=== PATIENT | female | born 1955 | race Caucasian/White ===

== ENCOUNTER 2020-05-22 17:39 | Emergency (ER) | payer BC, OTHER, SELFPAY ==
[2020-05-22 17:47] VITALS: BP 150/87; PULSE 87; RESP 16; TEMP 36.9; O2SAT 99
--- NOTE | 2020-05-22 17:55 | ED.GENADULT ---
HPI - General Adult General Chief complaint: Upper Respiratory Infection Stated complaint: NOSE/THROAT/SWELLING/HEADACHE/NO ENERGY Time Seen by Provider: 05/22/20 17:55 Source: patient and RN notes reviewed Mode of arrival: ambulatory Limitations: no limitations History of Present Illness HPI narrative: 65-year-old female presents with complaints of upper respiratory infection, sneezing, some facial congestion, facial pressure, and intermittent headache (not the worst of her life) for the past 20 days. Ana Cristina reports increase symptoms with facial pain and pressure for the past 72 hours. Aleve at noon with little relief. No facial swelling. Denies cough. Nasal congestion, no rhinorrhea. No high fevers, drooling, neck or throat swelling. No voice change. No nausea, vomiting, or abdominal pain. Tolerating liquids well. Denies dyspnea, difficulty swallowing, jaw pain, dental pain, foreign body sensation, and rash. No chest pain or shortness of breath. The patient reports she have not been diagnosed with COVID-19. The patient reports she received her 2nd Pfized COVID-19 vaccine 05/17/2020. The patient reports she is not waiting for the results of a COVID-19 lab test. The patient reports she do not have chills, weakness, or fatigue. The patient reports she do not have any sore throat, loss of taste or smell, and diarrhea. Denies recent traveling. Denies concerns for COVID-19 or exposures been home with limited outdoor exposure except for essential household needs, work, and return home. At this time, patient is not suspected of having COVID-19. Some parts of this dictation were generated by voice recognition software and may contain typographical and/or grammatical inaccuracies. Related Data Home Medications Medication Instructions Recorded Confirmed bupropion HCl PO 05/22/20 Allergies Allergy/AdvReac Type Severity Reaction Status Date / Time No Known Allergies Allergy Unverified 07/04/16 06:30 Review of Systems Review of Systems: Narrative: CONSTITUTIONAL: Denies fever, chills, sweats. Complains of fatigue. EYES: Denies visual changes, redness, discharge. ENT: Complains of congestion, facial congestion and pressure, scratchy throat. Denies rhinorrhea, otalgia, sore throat. CARDIOVASCULAR: Denies chest pain, palpitations, edema. RESPIRATORY: Denies dyspnea, wheezing, cough. GASTROINTESTINAL: Denies abdominal pain, nausea, vomiting, diarrhea. SKIN: Denies rash or itching. MUSCULOSKELETAL: Denies acute back pain, joint pain, or myalgia. NEUROLOGIC: Denies numbness or focal weakness. Complains of intermittent THOMAS. PSYCHIATRIC: Denies anxiety or depression. All other systems reviewed & are unremarkable except as noted in HPI and below. [facility] Past Medical History Medical History (Updated 05/28/20 @ 11:21 by CED Betancur) Abnormal Pap smear of cervix Depression Post-menopausal Vaginal delivery X2 Surgical History Surgical History (Updated 05/22/20 @ 18:14 by CED Betancur) History of cervical biopsy Family History Family History (Updated 05/22/20 @ 18:15 by CED Betancur) Father , Related to sepsis Diabetes mellitus Mother Pancreatic cancer Social History Social History (Updated 05/28/20 @ 11:22 by CED Betancur) Smoking status: Never smoker Tobacco type: cigarettes Second hand tobacco smoke exposure: No Alcohol intake: current Substance use: never Living arrangements: with family Occupation/Education: occupation Gender identity (if verbalized by the patient): Female Sexual Orientation (if Verbalized by the Patient): Straight or Heterosexual Comments At time of signature, agree with nurse past medical, surgical, social, and family history. There is relevant patient's history pertinent to the presenting complaint, no relevant family history pertinent to the presenting complaint. Exam Narrative: Exam Narrat
== END 2020-05-22 18:23 | disposition home or self-care (01) ==
PROVIDERS: Emergency Provider Nurse Practitioner Family; PCP Internal Medicine
DX: J32.0 Chronic maxillary sinusitis (principal)
CPT/HCPCS: 99213; G0463

== ENCOUNTER 2020-06-28 14:41 | Outpatient (CLI) | payer BC, OTHER, SELFPAY ==
--- NOTE | ~2020-06-28 | DEXA_ITS ---
Bone Density Report Name: Ana Cristina Rivas Age: 65 Sex: Female Ethnicity: White Date of : 1955 Indication: monitoring treatment; parental hip fracture; Referring Provider: TinyAnn Study: Bone densitometry was performed. Exam Date: June 28, 2020 Accession number: [id number] Bone Density: Region BMD T-score Z-score Classification AP Spine (L1, L3) 1.100 0.8 2.4 Normal Femoral Neck (Left) 0.828 -0.2 1.3 Normal Total Hip (Left) 0.939 0.0 1.1 Normal Total Hip Bilateral Avg 0.931 -0.1 1.1 Normal Femoral Neck (Right) 0.775 -0.7 0.8 Normal Total Hip (Right) 0.923 -0.2 1.0 Normal World Health Organization criteria for BMD impression classify patients as: Normal (T-score at or above -1.0), Osteopenia (T-score between -1.0 and -2.5), or Osteoporosis (T-score at or below -2.5). 10-year Fracture Risk: FRAX not reported because: All T-scores for Spine Total, Hip Total, Femoral Neck at or above -1.0 Treated for osteoporosis Previous Exams: Region Exam Age BMD T-score BMD Change BMD Change Date g/cm2 vs Baseline vs Previous AP Spine(L1, L3) 06/28/2020 65 1.100 0.8 -0.089(-7.5%)# -0.071(-6.0%)* 01/11/2014 58 1.171 1.4 -0.018(-1.5%)# -0.004(-0.3%)# 12/10/2010 55 1.175 1.5 -0.014(-1.2%) -0.079(-6.3%)* 12/23/2006 51 1.254 2.2 0.065(5.4%)* 0.065(5.4%)* 05/03/2001 46 1.189 1.6 Total Hip(Left) 06/28/2020 65 0.939 0.0 0.022(2.4%)# 0.031(3.4%)* 01/11/2014 58 0.907 -0.3 -0.009(-1.0%)# 0.018(2.0%)# 12/10/2010 55 0.890 -0.4 -0.027(-2.9%) -0.043(-4.6%)* 12/23/2006 51 0.933 -0.1 0.016(1.8%) 0.016(1.8%) 05/03/2001 46 0.917 -0.2 Total Hip(Right) 06/28/2020 65 0.923 -0.2 -0.021(-2.3%)# -0.036(-3.8%)* 01/11/2014 58 0.959 0.1 0.015(1.5%)# -0.012(-1.3%)# 12/10/2010 55 0.971 0.2 0.027(2.9%) -0.005(-0.5%) 12/23/2006 51 0.976 0.3 0.032(3.4%)* 0.032(3.4%)* 05/03/2001 46 0.944 0.0 *Denotes significance at 95% confidence level, LSC for AP Spine = 0.022 g/cm2, LSC for Total Hip = 0.027 g/cm2 Clinical Information Provided by Patient: Parent has had a hip fracture Is being treated for osteoporosis Has used the following medications: Vitamin D Patient maximum height was 67 Menopause Age: 56 Drinks caffeinated beverages Onset of menses at age 13 Number of children 2 Impression: The patient has normal bone mass. The patient has risk facto
--- NOTE | ~2020-06-28 | MM_ITS ---
EXAMINATION: MM screening [facility] BI w olga HISTORY: Screening mammogram TECHNIQUE: Craniocaudal and mediolateral oblique 3-D tomosynthesis images were obtained and synthetic 2-D images were generated. CAD analysis was submitted and interpreted. COMPARISON: 02/21/2019, 02/17/2018, 12/29/2016, 10/04/2015 BREAST PARENCHYMAL COMPOSITION: The breasts are almost entirely fatty. FINDINGS: There is no evidence of suspicious mass, calcification, or architectural distortion to sugg est malignancy in either breast. There has been no suspicious interval change. IMPRESSION: 1. No mammographic evidence of malignancy. 2. Recommend routine screening mammography in one year. BI-RADS Category 1: Negative Reviewed, dictated and finalized at location A.
== END 2020-06-28 14:42 | disposition home or self-care (01) ==
LOC: ANHIMG 14:45
PROVIDERS: PCP Nurse Practitioner Family; Visit Provider Internal Medicine
DX: Z12.31 Encounter for screening mammogram for malignant neoplasm of breast (principal); Z78.0 Asymptomatic menopausal state
CPT/HCPCS: 77063; 77067; 77080

== ENCOUNTER 2021-08-01 08:06 | Outpatient (CLI) | payer MEDICARE, OTHER, SELFPAY ==
--- NOTE | ~2021-08-01 | MM_ITS ---
EXAMINATION: MM screening [facility] BI w olga HISTORY: Screening TECHNIQUE: Craniocaudal and mediolateral oblique 3-D tomosynthesis images were obtained and synthetic 2-D images were generated. CAD analysis was submitted and interpreted. COMPARISON: Comparison to multiple prior studies sequentially, with oldest reviewed study dated 10/03. BREAST PARENCHYMAL COMPOSITION: Breast composed of scattered areas of fibroglandular density FINDINGS: There is no evidence of suspicious mass, calcification, or architectural distortion to sugg est malignancy in either breast. There has been no suspicious interval change. IMPRESSION: 1. No mammographic evidence of malignancy. 2. Recommend routine screening mammography in one year. BI-RADS Category 1: Negative Reviewed, dictated and finalized at location A.
== END 2021-08-01 08:07 | disposition home or self-care (01) ==
LOC: ANHIMG 08:09
PROVIDERS: PCP Internal Medicine; Visit Provider Internal Medicine
DX: Z12.31 Encounter for screening mammogram for malignant neoplasm of breast (principal)
CPT/HCPCS: 77063; 77067

== ENCOUNTER 2021-08-15 10:01 | Outpatient (CLI) | payer MEDICARE, OTHER, SELFPAY ==
--- NOTE | 2021-08-15 | EST_ITS ---
Patient Info Name: Ana Cristina Rivas Age: 66 years : 1955 Gender: Female Ht: 67 in Wt: 201 lbs BSA: 2.11 m2 HR: 80 bpm BP: 131 / 81 mmHg Heart Rhythm: Sinus Rhythm Technical Quality: Excellent Exam Date: 08/15/2021 10:40 AM Exam Location: [facility] Stress Patient Status: Outpatient Admit Date: 08/15/2021 Staff Ordering Physician: Ann Franks MD Attending Provider: Ann Franks MD Exercise Technologist: Danielle Solis CT Nurse: DENNIS HUGHES Exam Type: CA stress test treadmill Study Info Indications R94.31 - Abnormal electrocardiogram ECG EKG A treadmill exercise stress test was performed. Summary 1. Negative treadmill stress test for ischemia. 2. Good exercise tolerance. Protocol: [facility] Stress ECG Details Stage: REST Duration (min): 16 min : 6 sec Speed (mph): 0.0 Grade (%): 0 HR (bpm): 79 SBP (mmHg): 138 DBP (mmHg): 81 METS: --- Stage: STAGE 1 Duration (min): 1 min : 0 sec Speed (mph): 1.7 Grade (%): 10 HR (bpm): 97 SBP (mmHg): 138 DBP (mmHg): 81 METS: --- Stage: STAGE 1 Duration (min): 2 min : 0 sec Speed (mph): 1.7 Grade (%): 10 HR (bpm): 107 SBP (mmHg): 138 DBP (mmHg): 81 METS: --- Stage: STAGE 1 Duration (min): 3 min : 0 sec Speed (mph): 1.7 Grade (%): 10 HR (bpm): 111 SBP (mmHg): 163 DBP (mmHg): 77 METS: --- Stage: STAGE 2 Duration (min): 1 min : 0 sec Speed (mph): 2.5 Grade (%): 12 HR (bpm): 123 SBP (mmHg): 163 DBP (mmHg): 77 METS: --- Stage: STAGE 2 Duration (min): 2 min : 0 sec Speed (mph): 2.5 Grade (%): 12 HR (bpm): 129 SBP (mmHg): 178 DBP (mmHg): 75 METS: --- Stage: STAGE 2 Duration (min): 3 min : 0 sec Speed (mph): 2.5 Grade (%): 12 HR (bpm): 138 SBP (mmHg): 178 DBP (mmHg): 75 METS: --- Stage: STAGE 3 Duration (min): 1 min : 0 sec Speed (mph): 3.4 Grade (%): 14 HR (bpm): 148 SBP (mmHg): 172 DBP (mmHg): 74 METS: --- Stage: STAGE 3 Duration (min): 1 min : 0 sec Speed (mph): 3.4 Grade (%): 14 HR (bpm): 148 SBP (mmHg): 172 DBP (mmHg): 74 METS: --- Stage: RECOVERY Duration (min): 0 min : 59 sec Speed (mph): 0.0 Grade (%): 0 HR (bpm): 126 SBP (mmHg): 172 DBP (mmHg): 74 METS: --- Stage: RECOVERY Duration (min): 1 min : 59 sec Speed (mph): 0.0 Grade (%): 0 HR (bpm): 110 SBP (mmHg): 172 DBP (mmHg): 74 METS: --- Stage: RECOVERY Duration (min): 2 min : 59 sec Speed (mph): 0.0 Grade (%): 0 HR (bpm): 106 SBP (mmHg): 172 DBP (mmHg): 74 METS: --- Stage: RECOVERY Duration (min): 3 min : 24 sec Speed (mph): 0.0 Grade (%): 0 HR (bpm): 101 SBP (mmHg): 183 DBP (mmHg): 74 METS: --- Rest HR: 79 bpm Peak HR: 148
== END 2021-08-15 10:02 | disposition home or self-care (01) ==
LOC: ANHCARD 10:02
PROVIDERS: PCP Internal Medicine; Visit Provider Internal Medicine
DX: R94.31 Abnormal electrocardiogram [ECG] [EKG] (principal)
CPT/HCPCS: 93017

== ENCOUNTER 2021-09-26 01:00 | Day surgery (SDC) | payer MEDICARE, OTHER, SELFPAY ==
[2021-09-17 09:42] VITALS: BMI 31.4
[2021-09-26 06:52] VITALS: BP 135/79; PULSE 79; RESP 17; TEMP 36.4; O2SAT 100
[2021-09-26] MEDS: LACTATED RINGERS 1,000 ML 150 ML IV CONT (07:05)
--- NOTE | 2021-09-26 07:23 | PM.IMHP ---
H&P: HPI History of Present Illness Date/Time: 09/26/21 07:23 Chief Complaint: History of colon polyps. Narrative: This is a 66-year-old white female patient presents for screening colonoscopy. Patient's current weight appetite and bowel movements are normal. Patient denies abdominal pain. She has had no bleeding. Family history noncontributory. Patient did have an adenomatous colon polyp removed the colon at previous colonoscopy 2017. Patient presents today 1st screening colonoscopy. Review of Systems Review of Systems: Review of systems noncontributory. [facility] Past Medical History Medical History (Updated 06/14/20 @ 15:20 by Aura Champagne NP) Abnormal Pap smear of cervix Allergic rhinitis Anxiety Bilateral hip pain BMI 34.0-34.9,adult Depression Encounter to establish care Personal history of colonic polyps Pharyngitis Post-menopausal Vaginal delivery X2 Surgical History Surgical History (Updated 05/22/20 @ 18:14 by CED Betancur) History of cervical biopsy Family History Family History (Updated 06/14/20 @ 13:49 by Nain Bravo CMA) Father , Related to sepsis Diabetes mellitus Heart disease Malignant neoplasm of prostate Mother Pancreatic cancer Sibling Cervical cancer Social History Social History (Updated 06/14/20 @ 13:50 by Nain Bravo CMA) Smoking status: Never smoker Second hand tobacco smoke exposure: No Alcohol intake: current Substance use: never Substance use type: does not use Living arrangements: with family Gender identity (if verbalized by the patient): Female Sexual Orientation (if Verbalized by the Patient): Straight or Heterosexual Spiritual care concerns: No Meds Home Medications and Allergies Home Medications Medication Instructions Recorded Confirmed Type bupropion HCl 150 mg 24 hr tablet, 150 mg PO QAM 06/14/20 09/17/21 History extended release (Wellbutrin XL) vit 1 cap PO DAILY 06/14/20 09/17/21 History C,E,zinc,Yx-cxfrf-4-lutein-zeaxanthin 250 mg-2.5 mg-0.5 mg capsule fluticasone propionate 50 1 spray intranasal BID PRN Allergy 09/17/21 09/17/21 History mcg/actuation nasal Symptoms spray,suspension (Allergy Relief (fluticasone)) loratadine 10 mg tablet (Claritin) 10 mg PO DAILY PRN Allergy Symptoms 09/17/21 09/17/21 History pravastatin 40 mg tablet 40 mg PO DAILY 09/17/21 09/17/21 History Allergies Allergy/AdvReac Type Severity Reaction Status Date / Time No Known Allergies Allergy Unverified 09/26/21 06:50 Vital Signs Vital Signs - 24 hr 09/26/21 06:52 Temperature 97.6 F Pulse Rate 79 Respiratory Rate 17 Blood Pressure 135/79 Pulse Oximetry 100 Oxygen Delivery Room Air Exam Narrative: Physical exam reveals patient to be alert. Vital signs stable. HEENT exam is unremarkable. Patient is anicteric. Lungs are clear to auscultation and percussion. Heart is without murmur or extra sounds. Abdominal exam bowel sounds are present soft nontender with no organomegaly. Digital external rectal exam is normal. Assessment and Plan Assessment and plan (1) Personal history of colonic polyps: Code(s): Z86.010 - Personal history of colonic polyps Status: Acute Assessment and Plan: Patient has a prior history of adenomatous colon polyps. Plan surveillance colonoscopy now consider this a 5 year intervals in the future. Further recommendations will be given after endoscopy.
--- NOTE | 2021-09-26 07:55 | WPDANESEPPF ---
Anes - Initial Pre Proc Eval Procedure: Operation Date: 09/26/21 08:00 Proposed Procedures p Screening Colonoscopy - Dylon Gracia MD Date/Time: 09/26/21 07:55 Surgeon: Dylon Garcia MD Pre Op Diagnosis: hx of colon polyps Patient Data Age: 66 Gender: F Height: 1.7 m Weight: 89.6 kg Last Vital Signs Temp 97.6 F 09/26/21 06:52 Pulse 79 09/26/21 06:52 Resp 17 09/26/21 06:52 BP 135/79 09/26/21 06:52 Pulse Ox 100 09/26/21 06:52 O2 Del Method Room Air 09/26/21 06:52 Allergies Allergy/AdvReac Type Severity Reaction Status Date / Time No Known Allergies Allergy Unverified 09/26/21 06:50 Home Medications Medication Instructions Recorded Confirmed Type bupropion HCl 150 mg 24 hr tablet, 150 mg PO QAM 06/14/20 09/17/21 History extended release (Wellbutrin XL) vit 1 cap PO DAILY 06/14/20 09/17/21 History C,E,zinc,Rs-qhtix-6-lutein-zeaxanthin 250 mg-2.5 mg-0.5 mg capsule fluticasone propionate 50 1 spray intranasal BID PRN Allergy 09/17/21 09/17/21 History mcg/actuation nasal Symptoms spray,suspension (Allergy Relief (fluticasone)) loratadine 10 mg tablet (Claritin) 10 mg PO DAILY PRN Allergy Symptoms 09/17/21 09/17/21 History pravastatin 40 mg tablet 40 mg PO DAILY 09/17/21 09/17/21 History Patient hx anesthesia problems: none Family hx anesthesia problems: none Results Review: All pre-operative results and documents have been reviewed as part of the pre-operative evaluation. [facility] Past Medical History Medical History (Updated 06/14/20 @ 15:20 by Aura Champagne NP) Abnormal Pap smear of cervix Allergic rhinitis Anxiety Bilateral hip pain BMI 34.0-34.9,adult Depression Encounter to establish care Personal history of colonic polyps Pharyngitis Post-menopausal Vaginal delivery X2 Surgical History Surgical History (Updated 05/22/20 @ 18:14 by CED Betancur) History of cervical biopsy Family History Family History (Updated 06/14/20 @ 13:49 by Nain Bravo [facility]) Father , Related to sepsis Diabetes mellitus Heart disease Malignant neoplasm of prostate Mother Pancreatic cancer Sibling Cervical cancer Social History Social History (Updated 06/14/20 @ 13:50 by Nain Bravo [facility]) Smoking status: Never smoker Second hand tobacco smoke exposure: No Alcohol intake: current Substance use: never Substance use type: does not use Living arrangements: with family Gender identity (if verbalized by the patient): Female Sexual Orientation (if Verbalized by the Patient): Straight or Heterosexual Spiritual care concerns: No Anes - Eval Final PreProcedure Day of Procedure 09/26/21 07:55 Patient weight: overweight Heart: regular rate and rhythm Lungs: clear to auscultation Airway: Mallampati scale class II Neurological: alert and oriented Last oral intake: >/= 8 hours ASA classification: II Emergent: no Anesthetic plan: proceed Anesthesia type and monitoring: general GIVS and standard monitoring Results Review: All pre-operative results and documents have been reviewed as part of the pre-operative evaluation. Informed Consent: The patient's anesthetic plan and its attendant risks and benefits were discussed with the patient/family/POA. Questions were solicited and answers provided to the satisfaction of the patient/family/POA.
[2021-09-26 08:17] VITALS: BP 107/67; PULSE 72; RESP 22; O2SAT 98
[2021-09-26 08:27] VITALS: BP 111/69; PULSE 67; RESP 24; O2SAT 100
[2021-09-26 08:37] VITALS: BP 120/73; PULSE 68; RESP 23; O2SAT 100
== END 2021-09-26 08:44 | disposition home or self-care (01) ==
PROVIDERS: PCP Internal Medicine; Visit Provider Internal Medicine Gastroenterology
PROC: 0DJD8ZZ Inspection of Lower Intestinal Tract, Via Natural or Artificial Opening Endoscopic (ICD-10-PCS; CPT 45378; principal; 2021-09-26 08:00)
DX: Z12.11 Encounter for screening for malignant neoplasm of colon (principal); Z86.010 Personal history of colon polyps; K64.8 Other hemorrhoids; F41.9 Anxiety disorder, unspecified; F32.A Depression, unspecified
CPT/HCPCS: G0105; J2704; J7120

== ENCOUNTER 2022-03-28 12:04 | Emergency (ER) | payer MEDICARE, OTHER, SELFPAY ==
[2022-03-28 12:15] VITALS: BP 142/84; PULSE 104; RESP 18; TEMP 36.4; O2SAT 99
--- NOTE | 2022-03-28 12:39 | ED.URI ---
HPI - URI/Sore Throat General Chief Complaint: Upper Respiratory Infection Stated Complaint: low energy Time Seen by Provider: 03/28/22 12:30 Source: patient Mode of arrival: ambulatory Limitations: no limitations History of Present Illness HPI Narrative: Patient presents today complaining of, ?low energy? yesterday evening. Since since resolved and she is feeling like her energy is back to normal today. Additionally, she complains of bilateral ear fullness that started yesterday, as well as chronic sinus symptoms including congestion and nasal drainage with sinus pressure. States the symptoms are present through winter and wax and wane. She uses Flonase and saline, these have not been helping recently. Denies cough, fever, body aches, nausea vomiting, any pain at this time. It has been years since she has been on antibiotics for her sinuses. Related Data Home Medications Medication Instructions Recorded Confirmed bupropion HCl 150 mg 24 hr tablet, 150 mg PO QAM 06/14/20 03/28/22 extended release (Wellbutrin XL) vit 1 cap PO DAILY 06/14/20 03/28/22 C,E,zinc,Oc-zapzn-9-lutein-zeaxanthin 250 mg-2.5 mg-0.5 mg capsule pravastatin 40 mg tablet 40 mg PO DAILY 09/17/21 03/28/22 amlodipine 5 mg tablet 5 mg PO DAILY 03/28/22 03/28/22 hydrochlorothiazide 12.5 mg tablet 12.5 mg PO DAILY 03/28/22 03/28/22 omeprazole 20 mg capsule,delayed 20 mg PO DAILY 03/28/22 03/28/22 release Allergies Allergy/AdvReac Type Severity Reaction Status Date / Time No Known Allergies Allergy Verified 03/28/22 12:14 Review of Systems Review of Systems: CONSTITUTIONAL: Denies body aches, fever, chills, or sweats.+ fatigue-resolved EYES: Denies visual changes, redness, or discharge. ENT: Denies rhinorrhea, sore throat, or otalgia.+ congestion, sinus pressure CARDIOVASCULAR: Denies chest pain, palpitations, or edema. RESPIRATORY: Denies cough or dyspnea. GASTROINTESTINAL: Denies abdominal pain, nausea, vomiting, or diarrhea. GENITOURINARY: Denies dysuria or hematuria. SKIN: Denies rash, itching, or wounds. MUSCULOSKELETAL: Denies back pain, joint pain, or myalgia. NEUROLOGIC: Denies headache, numbness, tingling, or weakness. PSYCH: Denies depression or anxiety. [facility] Past Medical History Medical History Abnormal Pap smear of cervix Allergic rhinitis Anxiety Bilateral hip pain BMI 34.0-34.9,adult Depression Encounter to establish care Personal history of colonic polyps Pharyngitis Post-menopausal Vaginal delivery X2 Surgical History Surgical History History of cervical biopsy Family History Family History Father , Related to sepsis Diabetes mellitus Heart disease Malignant neoplasm of prostate Mother Pancreatic cancer Sibling Cervical cancer Social History Social History Smoking status: Never smoker Second hand tobacco smoke exposure: No Alcohol intake: current Substance use: never Substance use type: does not use Living arrangements: with family Occupation/Education: occupation Gender identity (if verbalized by the patient): Female Sexual Orientation (if Verbalized by the Patient): Straight or Heterosexual Spiritual care concerns: No Comments At time of signature, I have reviewed and agree with nursing past medical, surgical, social and family history unless otherwise noted. Please see nursing chart for further information. There is no relevant family history pertinent to the presenting complaint Exam Narrative: GENERAL: Well-appearing, well-nourished, and in no acute distress. HEAD: Normocephalic, atraumatic. EYES: EOMI. No redness or drainage. Conjunctivae normal. ENT: Mucous membranes pink and moist. Nares mildly conge
== END 2022-03-28 12:44 | disposition home or self-care (01) ==
PROVIDERS: Emergency Provider Nurse Practitioner; PCP Internal Medicine
DX: J01.90 Acute sinusitis, unspecified (principal); B96.89 Other specified bacterial agents as the cause of diseases classified elsewhere; F41.9 Anxiety disorder, unspecified; F32.A Depression, unspecified
CPT/HCPCS: 99213; G0463

== ENCOUNTER 2023-03-26 13:58 | Outpatient (CLI) | payer MEDICARE, OTHER, SELFPAY ==
--- NOTE | ~2023-03-26 | DEXA_ITS ---
Bone Density Report Name: SAMI SCHWARTZ Age: 67 Sex: Female Ethnicity: Tiny Date of : 1955 Indication: postmenopausal; screening for osteoporosis; parental hip fracture; Referring Provider: DHARA DIXON Study: Bone densitometry was performed. Exam Date: March 26, 2023 Accession number: [id number] Bone Density: Region BMD T-score Z-score Classification AP Spine(L1, L2, L3) 1.137 1.1 2.9 Normal Femoral Neck (Left) 0.735 -1.0 0.6 Normal Total Hip (Left) 0.908 -0.3 1.1 Normal Femoral Neck (Right) 0.757 -0.8 0.8 Normal Total Hip (Right) 0.920 -0.2 1.1 Normal Total Hip Mean 0.914 -0.3 1.1 Normal World Health Organization criteria for BMD impression classify patients as: Normal (T-score at or above -1.0), Osteopenia (T-score between -1.0 and -2.5), or Osteoporosis (T-score at or below -2.5). 10-year Fracture Risk: FRAX not reported because: All T-scores for Spine Total, Hip Total, Femoral Neck at or above -1.0 Previous Exams: Region Exam Age BMD T-score BMD Change BMD Change Date g/cm2 vs Baseline vs Previous Total Hip(Left) 03/26/2023 67 0.908 -0.3 -0.030 (-3.2%) -0.030 (-3.2%) 06/28/2020 65 0.939 0.0 Total Hip(Right) 03/26/2023 67 0.920 -0.2 -0.003 (-0.3%) -0.003 (-0.3%) 06/28/2020 65 0.923 -0.2 *Denotes significance at 95% confidence level, LSC for Total Hip = 0.027 g/cm2 Clinical Information Provided by Patient: Parent has had a hip fracture Has used the following medications: Vitamin D, women's multi-vitamin Patient maximum height was 67 Menopause Age: 56 Drinks caffeinated beverages Onset of menses at age 13 Number of children 2 Missed period for more than 6 months in a row Impression: The patient has normal bone mass. The patient has risk factors, including: parental hip fracture. The BMD for the Total Hip(Left) decreased, changing by -3.2% since the last DXA exam. Discussion: BONE DENSITY IS ABOVE THE MINIMUM DESIRABLE LEVEL AT ALL SKELETAL SITES TESTED. This patient?s bone mineral density is above the minimum desirable level (T-score -1.0 or better) at all sites measured. The patient should follow a healthful lifestyle (good nutrition with adequate calcium and vitamin D, and appropriate weight-bearing exercise). Follow-Up: Consider repeating this study in 3 to 4 years to reassess this patient's status, or sooner if there is some new clinical indication. Reported by: MARIA E on 03/26/2023 2:33:00 PM.
--- NOTE | ~2023-03-26 | MM_ITS ---
EXAMINATION: MM screening [facility] BI w olga HISTORY: Screening mammogram TECHNIQUE: Craniocaudal and mediolateral oblique 3-D tomosynthesis images were obtained and synthetic 2-D images were generated. CAD analysis was submitted and interpreted. COMPARISON: 08/01/2021, 06/28/2020 bilateral screening mammogram examinations BREAST PARENCHYMAL COMPOSITION: The breasts are almost entirely fatty. FINDINGS: There is no evidence of suspicious mass, calcification, or architectural distortion to sugg est malignancy in either breast. There has been no suspicious interval change. IMPRESSION: 1. No mammographic evidence of malignancy. 2. Recommend routine screening mammography in one year. BI-RADS Category 1: Negative Reviewed, dictated and finalized at location A. ERN ROOM ATTENDANT
== END 2023-03-26 13:59 | disposition home or self-care (01) ==
LOC: ANHIMG 14:00
PROVIDERS: PCP Internal Medicine; Visit Provider Internal Medicine
DX: Z12.31 Encounter for screening mammogram for malignant neoplasm of breast (principal); Z78.0 Asymptomatic menopausal state
CPT/HCPCS: 77063; 77067; 77080

== ENCOUNTER → 2024-02-03 15:25 | Outpatient (CLI) | payer MEDICARE, OTHER, SELFPAY ==
--- NOTE | ~2024-02-03 | XR_ITS ---
EXAMINATION: XR lumbar spine min 4V DATE: 02/03/2024 15:45 INDICATION: Low back pain, unspecified. TECHNIQUE: 5 views of lumbar spine were obtained. COMPARISON: None. FINDINGS: There is 10 degrees levoscoliosis of thoracolumbar spine. 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 There is 3 mm retrolisthesis of T12 on L1 and L1 on L2 and 3 mm anterolisthesis of L5 on S1. Verteb ral body heights are normal. There is moderately decreased disc height at T12-L1, L1-L2, mildly decre ased disc height at L2-L3 and L3-L4, severely decreased disc height at L4-L5, and mildly decreased di sc height at L5-S1. There is multilevel facet joint osteoarthritis, severe in lower lumbar spine. IMPRESSION: 1. Severe lumbar spondylosis. 2. Thoracolumbar levoscoliosis. Reviewed, dictated and finalized at location A. IST
== END ==
LOC: EXPTROY 15:27
PROVIDERS: PCP Nurse Practitioner Family; Visit Provider Nurse Practitioner Family
DX: M47.816 Spondylosis without myelopathy or radiculopathy, lumbar region (principal); M41.85 Other forms of scoliosis, thoracolumbar region
CPT/HCPCS: 72110

== ENCOUNTER 2024-03-10 15:23 | Emergency (ER) | payer MEDICARE, OTHER, SELFPAY ==
[2024-03-10 15:31] VITALS: BP 134/77; PULSE 100; RESP 18; TEMP 36.4; O2SAT 99
--- NOTE | 2024-03-10 15:41 | ED.URI ---
HPI - URI/Sore Throat General Chief Complaint: Upper Respiratory Infection Stated Complaint: Sinus Infection Time Seen by Provider: 03/10/24 15:41 Source: patient Mode of arrival: ambulatory Limitations: no limitations History of Present Illness HPI Narrative: 68-year-old female presents with complaint of chronic sinusitis. Patient reports intermittent nasal congestion, postnasal drainage off and on for the past month. Using Flonase daily. Does not feel that she needs a daily antihistamine. Last 5 days reports increase in sinus pressure and congestion With sinus headaches. Complaining of fatigue, body aches. Afebrile. Concern for bacterial sinusitis. All systems reviewed and negative except as noted above. Related Data Home Medications ?Medication ?Instructions ?Recorded ?Confirmed ?Last Taken ?Type bupropion HCl 150 mg 24 hr tablet, 150 mg PO QAM 06/14/20 02/03/24 09/25/21 History extended release (Wellbutrin XL) vit 1 cap PO DAILY 06/14/20 02/03/24 09/25/21 History C,E,zinc,Fe-gjmua-9-lutein-zeaxanthin 250 mg-2.5 mg-0.5 mg capsule pravastatin 40 mg tablet 40 mg PO DAILY 09/17/21 02/03/24 09/25/21 History amlodipine 5 mg tablet 5 mg PO DAILY 03/28/22 02/03/24 Unknown History hydrochlorothiazide 12.5 mg tablet 12.5 mg PO DAILY 03/28/22 02/03/24 Unknown History omeprazole 20 mg capsule,delayed 20 mg PO DAILY 03/28/22 02/03/24 Unknown History release turmeric (bulk) 95 % powder ea miscellaneous 03/10/24 Unknown History (Curcumin) Allergies Allergy/AdvReac Type Severity Reaction Status Date / Time No Known Allergies Allergy Verified 03/10/24 15:38 Review of Systems Review of Systems: CONSTITUTIONAL: Denies fever, chills, or sweats. EYES: Denies visual changes, redness, or discharge. ENT: Reports rhinorrhea, congestion, postnasal drainage, sinus pressure. Denies sore throat, or otalgia. CARDIOVASCULAR: Denies chest pain, palpitations, or edema. RESPIRATORY: Denies cough or dyspnea. GASTROINTESTINAL: Denies abdominal pain, nausea, vomiting, or diarrhea. GENITOURINARY: Denies dysuria or hematuria. SKIN: Denies rash or itching. MUSCULOSKELETAL: Denies back pain, joint pain, or myalgia. NEUROLOGIC: Denies headache, numbness, or weakness. PSYCHIATRIC: Denies anxiety or depression. All other systems reviewed are negative, except as documented in HPI. [facility] Past Medical History Medical History (Updated 03/10/24 @ 15:51 by Mayi Cervantes NP) Breast cancer screening Hyperlipidemia Prediabetes Hypertension Low back pain Bilateral hip pain BMI 34.0-34.9,adult Personal history of colonic polyps Pharyngitis Allergic rhinitis Encounter to establish care Anxiety Vaginal delivery X2 Abnormal Pap smear of cervix Depression Post-menopausal Surgical History Surgical History (Reviewed 02/03/24 @ 14:51 by Nain Bravo [facility]) History of cervical biopsy Family History Family History Father , Related to sepsis Diabetes mellitus Heart disease Malignant neoplasm of prostate Mother Pancreatic cancer Sibling Cervical cancer Social History Social History (Reviewed 02/03/24 @ 14:51 by Nain Bravo [facility]) Smoking status: Never smoker Second hand tobacco smoke exposure: No Alcohol intake: current Substance use: never Substance use type: does not use Living arrangements: with family Occupation/Education: occupation Gender identity (if verbalized by the patient): Female Sexual Orientation (if Verbalized by the Patient): Straight or Heterosexual Spiritual care concerns: No Comments At time of signature, agree with nursing past medical, surgical, social and family history. There is no relevant family history pertinent to the presenting complaint. Exam Narrative: GENERAL: This is a well-nourished, well-developed patient, in no apparent distress. HEAD: normocephalic, atraumatic. EYES: PERRL. Sclera clear/white. Vision is grossly intact. EARS: External ears normal, auditory canals clear and without drainage, TMs normal without perforation. Hearing grossly intact. NOSE: External nose normal with no obvious nasal discharge, nares without redness, no rhinorrhea. Bilateral maxillary and frontal sinus tenderness on palpation. THROAT: Mucous membranes moist, erythematous with postnasal drainage. No swelling or exudates. NECK: Neck supple, non-tender without lymphadenopathy, masses or thyromegaly. CARDIOVASCULAR: Regular rate and rhythm without murmurs, gallops, or rubs. RESPIRATORY: Clear to auscultation. Breath sounds equal bilaterally. No wheezes, rales, or rhonchi. SKIN: warm, Dry, intact with no suspicious lesions or rash, good texture and turgor. NEURO: awake, alert, and oriented to person, place and time. There were no obvious focal neurologic abnormalities. EXTREMITIES: No joint tenderness, effusion, or edema noted. Course Course Level of Care: Express Care Visit Vital Signs Vital signs: Vital Signs Temperature 36.4 C L 03/10/24 15:31 Pulse Rate 100 03/10/24 15:31 Respiratory Rate 18 03/10/24 15:31 Blood Pressure 134/77 03/10/24 15:31 Pulse Oximetry 99 03/10/24 15:31 Oxygen Delivery Room Air 03/10/24 15:31 Temperature 36.4 C L 03/10/24 15:31 Pulse Rate 100 03/10/24 15:31 Respiratory Rate 18 03/10/24 15:31 Blood Pressure 134/77 03/10/24 15:31 Pulse Oximetry 99 03/10/24 15:31 Oxygen Delivery Room Air 03/10/24 15:31 Reviewed MDM - URI/Sore Throat MDM Narrative Medical decision making narrative: will treat patient for bacterial sinusitis due to duration of symptoms and exam findings. Patient is aware of diagnosis, understands and agrees to treatment plan. Anticipatory guidance given. Patient agrees to follow-up as directed and is aware of reasons to seek care at the emergency department. Portions of this record may have been created with voice recognition software Differential Diagnosis Differential diagnosis: Likely upper respiratory infection, sinusitis, viral infection and influenza Discharge Plan Discharge Clinical Impression: Acute bacterial sinusitis Patient Disposition: Home, Self-Care Condition: Stable Instructions: Antibiotic Form, Sinusitis (ED) Additional Instructions: take antibiotic as prescribed until gone. Continue using qrem-uov-crjojtx Flonase daily. If you continue to have congestion and postnasal drainage start an robp-udk-ncyhlis antihistamine such as Claritin or Zyrtec. Drink at least 64 oz of water a day. Place cool mist humidifier in bedroom where you sleep. Follow-up with your primary care physician if symptoms are not improving. Patient Language: Tajik Prescriptions: New amoxicillin 875 mg tablet 875 mg PO Q12H 7 Days Qty: 14 0RF No Action amlodipine 5 mg tablet 5 mg PO DAILY omeprazole 20 mg capsule,delayed release(DR/EC) 20 mg PO DAILY hydrochlorothiazide 12.5 mg tablet 12.5 mg PO DAILY Curcumin 95 % powder miscellaneous vit C,E,Zn,Yb--hgn-zeax 250-2.5-0.5 mg capsule 1 cap PO DAILY bupropion HCl [Wellbutrin XL] 150 mg tablet extended release 24 hr 150 mg PO QAM pravastatin 40 mg tablet 40 mg PO DAILY Follow-up/Referrals: Thompson Zamora MD [Primary Care Provider] - Time of Disposition: 15:52
== END 2024-03-10 15:56 | disposition home or self-care (01) ==
PROVIDERS: Emergency Provider Nurse Practitioner Family; PCP Family Medicine
DX: J01.90 Acute sinusitis, unspecified (principal); I10 Essential (primary) hypertension; E78.5 Hyperlipidemia, unspecified; R73.03 Prediabetes; F41.9 Anxiety disorder, unspecified; F32.A Depression, unspecified
CPT/HCPCS: 99213; G0463

== ENCOUNTER 2024-11-02 13:56 | Outpatient (CLI) | payer MEDICARE, OTHER, SELFPAY ==
--- NOTE | ~2024-11-02 | MM_ITS ---
EXAMINATION: MM screening erna BI w olga HISTORY: Screening TECHNIQUE: Craniocaudal and mediolateral oblique 3-D tomosynthesis images were obtained and synthetic 2-D images were generated. CAD analysis was submitted and interpreted. COMPARISON: 08/01/2021 BREAST PARENCHYMAL COMPOSITION: There are scattered areas of fibroglandular density. FINDINGS: There is no evidence of suspicious mass, calcification, or architectural distortion in either breast to suggest malignancy. There has been no significant interval change. IMPRESSION: 1. No mammographic evidence of malignancy. Recommend routine screening mammography in one year. BI-RADS Category 1: Negative Reviewed, dictated and finalized at location Q. IMPRESSION: 1. No mammographic evidence of malignancy. Recommend routine screening mammogra phy in one year. BI-RADS Category 1: Negative
--- OUTSIDE RECORDS SUMMARY | 2024-11-02 14:37 | XMS_ITS | Clinical Summary ---
Author Organization [facility] Address [address] [place] [address] Care Team Providers [facility] Associate Name Role Phone Ann Franks MD Primary Care Provider [phone] Source Comments [facility],non-owned Affiliates and Associated Physician Practices is amultiple site organization consisting of ambulatory clinics and hospital sitesin [place], [place], [place] and [place]. This disclosure is being madepursuant to the Care Everywhere program and may not contain all information available regarding this patient. Last updated 17.[facility] Allergies No known active allergies Medications * Be aware that medications may not be up to date on this document. Alwaysverify current medications with the patient. buPROPion SR 12hr (WELLBUTRIN-SR) 150 MG tablet Take 150 mg by mouth once daily 05/25/2020 Active loratadine (CLARITIN) 10 MG tablet Take 10 mg by mouth once daily 06/14/2020 Active Multiple Vitamins-Minera ls (PRESERVISION AREDS 2) capsule Take 2 capsules by mouth 2 times daily Active Family History Medical History Relation Name Comments Cancer - Prostate Father Cancer - Other Mother Relation Name Status Comments Father Mother Social History Tobacco Use Types Packs/Day Years Used Date Smoking Tobacco: Never Smokeless Tobacco: Never Alcohol Use Standard Drinks/Week Comments Yes 0 (1 standard drink = 0.6 oz pur e alcohol) 2 glass per month Comments Unknown Sex and Gender Information Value Date Recorded Sex Assigned at Not on file Legal Sex Female 12:31 PM CDT Gender Identity Not on file Sexual Orientation Not on file Last Filed Vital Signs Vital Sign Reading Time Taken Comments Blood Pressure 153/101 06/26/2020 4:04 PM CDT Pulse 122 06/26/2020 4:04 PM CDT Temperature - - Respiratory Rate - - Oxygen Saturation - - Inhaled Oxygen Concentration - - Weight 98.9 kg (218 lb) 06/26/2020 4:04 PM CDT Height 170.2 cm (5' 7) 06/26/2020 4:04 PM CDT Body Mass Index 34.14 06/26/2020 4:04 PM CDT Plan of Treatment Health Maintenance Due Date Last Done Comments BONE DENSITY TESTING 1955 COLOGUARD (AGES 45-75) - COL ON CA SCREENING 1956 COLON MONITORING 1956 COLONOSCOPY - COLON CA SCREENING 1956 CT COLONOGRAPHY - COLON CA SCREENING 1956 Colorectal Cancer Screening 1956 FIT - COLON CA SCREENING 1956 FLEX SIG - COLON CA SCREENING 1956 LIPID TESTING 1956 MAMMOGRAM 1956 HEPATITIS C SCREENING 04/17/1974 DTAP/TDAP/TD VACCINES (1 - Tdap) 04/22/1975 PNEUMOCOCCAL VACCINE 50+ (1 of 1 - PCV) 2006 ZOSTER VACCINE (1 of 2) 2006 SCREENING FOR DIABETES 06/26/2020 DEPRESSION SCREENING 02/17/2024 COVID-19 VACCINE (1 - 2023-2 5 season) 2024 INFLUENZA VACCINE (#1) 2024 Respiratory Syncytial Virus (RSV) Vaccine Pt: or over 60 yrs (1 - 1-dose 75+ series) 04/22/2031 HEPATITIS B VACCINE Aged Out No longe r eligible based on patient's age to complete this topic HIB VACCINE Aged Out No longer eligi ble based on patient's age to complete this topic HPV VACCINE Aged Out No longer eligi ble based on patient's age to complete this topic MENINGOCOCCAL (Group B) VACC INE SHARED DECISION-MAKING Aged Out No longer eligibl e based on patient's age to complete this topic MENINGOCOCCAL GROUPS A/C/Y/W VACCINE Aged Out No longer eligible b ased on patient's age to complete this topic Insurance [facility] Subscriber Plan / Payer ( fective 2016-Present) Name:Ana Cristina Rivas Relation to Subscriber:Self Name:ANA CRISTINA RIVAS Payer ID:[id number] (NAIC) Type:PPO Address: [address] [facility] Associate Relationship Specialty Start Date End Date Ann Franks MD PCP - General 08/20/18
== END 2024-11-02 13:57 | disposition home or self-care (01) ==
LOC: CHSIMG 13:58
PROVIDERS: PCP Nurse Practitioner Family; Visit Provider Nurse Practitioner Family
DX: Z12.31 Encounter for screening mammogram for malignant neoplasm of breast (principal)
CPT/HCPCS: 77063; 77067